=== PATIENT | male | born 1975 | race Asian ===

== ENCOUNTER 2022-05-22 06:00 | Day surgery (SDC) | payer OTHER ==
[~2022-05-22] VITALS: Ht 160 cm; Wt 73.0 kg
[2022-05-22] VITALS (16 sets, daily range): BP systolic 114–149; BP diastolic 71–85
[~2022-05-22 06:00] MED LIST: ASCO100031 PO; CALC1CAP19 PO; CALC1TAB2 PO; CYAN100022 SL; KRIL500C PO; SIMV-46 PO; VITAMIN D3 PO
[2022-05-22] MEDS ORDERED: 0.9%NACL 1000ML 1,000 ML IV ONE (06:36)
[2022-05-22] MEDS ORDERED: PROPOFOL 10 MG/ML 20ML VIAL IV ONE (06:36)
== END 2022-05-22 09:20 | disposition home or self-care (01) ==
LOC: ENDO 06:00 → DAH 06:00 → ENDO 09:20
PROVIDERS: ATTEND Internal Medicine
DX: Z12.11 Encounter for screening for malignant neoplasm of colon (principal); Z20.822 Contact with and (suspected) exposure to COVID-19; K62.1 Rectal polyp; D12.3 Benign neoplasm of transverse colon; D12.2 Benign neoplasm of ascending colon; K64.8 Other hemorrhoids; K20.80 Other esophagitis without bleeding; K29.50 Unspecified chronic gastritis without bleeding; K31.89 Other diseases of stomach and duodenum; K22.89 Other specified disease of esophagus; R14.0 Abdominal distension (gaseous); J45.909 Unspecified asthma, uncomplicated; E78.5 Hyperlipidemia, unspecified; Z98.890 Other specified postprocedural states; Z86.010 Personal history of colon polyps
CPT/HCPCS: 87426; 45385; 43239; J7030 ×2; J2704; A4620; A4215 ×2; A4223; A4657; A4222; A4221; A4663; A4216; A4606

== ENCOUNTER 2023-06-03 06:18 | Day surgery (SDC) | payer OTHER ==
[2023-05-31 14:30] VITALS: BP 144/81; PULSE 66; RESP 16
[~2023-06-03] VITALS: Ht 160 cm; Wt 78.3 kg
[2023-06-03] VITALS (10 sets, daily range): BP systolic 99–136; BP diastolic 61–89; PULSE 62–76; RESP 14–16
[~2023-06-03 06:18] MED LIST changes: -CALC1CAP19 PO; -CALC1TAB2 PO; +CALCIUM PO; -CYAN100022 SL; +L.RH1CAP4 PO; +OMEP20CA12 PO
[2023-06-03] MEDS ORDERED: PROPOFOL 10 MG/ML 20ML VIAL IV ONE (08:03)
[2023-06-03] MEDS ORDERED: LIDOCAINE HCL 1% 20 ML VIAL ONE (08:04)
== END 2023-06-03 09:15 | disposition home or self-care (01) ==
LOC: DAH 06:18 → ENDO 06:18
PROVIDERS: ATTEND Internal Medicine Gastroenterology
DX: K21.00 Gastro-esophageal reflux disease with esophagitis, without bleeding (principal); K31.A11 Gastric intestinal metaplasia without dysplasia, involving the antrum; K22.70 Barrett's esophagus without dysplasia; K29.50 Unspecified chronic gastritis without bleeding; K44.9 Diaphragmatic hernia without obstruction or gangrene; R14.0 Abdominal distension (gaseous); K59.00 Constipation, unspecified; J45.909 Unspecified asthma, uncomplicated; E78.5 Hyperlipidemia, unspecified; Z86.010 Personal history of colon polyps; Z79.899 Other long term (current) drug therapy
CPT/HCPCS: 43239; J2704; A4620; A4215 ×2; A4223; A7002; A4222; A4221; A4663; A4216; J7030; A4606; J3490